=== PATIENT | male | born 2000 | race Caucasian/White ===

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

== ENCOUNTER 2025-07-23 05:49 | Emergency (ER) | payer BC, SELFPAY ==
[2025-07-23 05:51] VITALS: BP 156/92; PULSE 76; RESP 16; TEMP 36.8; O2SAT 100; BMI 23.8
--- NOTE | 2025-07-23 05:58 | EKG12_ITS ---
Test Reason : DYSRHYTHMIA Blood Pressure : */* mmHG Vent. Rate : 69 BPM Atrial Rate : 69 BPM P-R Int : 156 ms QRS Dur : 84 ms QT Int : 366 ms P-R-T Axes : 34 27 30 degrees QTcB Int : 392 ms Normal sinus rhythm Normal ECG Confirmed by Boris Inman ([id number]), newspaper or periodical editor TRINH RDZ ([id number]) on 07/26/2025 10:29:52 AM Referred By: Confirmed By: Boris Inman
--- NOTE | 2025-07-23 06:05 | ED.VIS.CHEST ---
HPI History of Present Illness Chief Complaint: Palpitations Narrative Narrative: Chief complaint and HPI: Palpitations. 25-year-old male with no significant past medical history presents for evaluation of palpitations. Patient states for the past several days he has had an upset stomach. Describes it as nausea. Denies any emesis. Denies any abdominal pain, diarrhea, constipation, dysuria, urinary frequency. States he did have some back pain with the nausea but this has since resolved. He states this morning while laying in bed he felt his heart racing. Palpitations have since resolved. He denies any fever, chills, shortness of breath, chest pain. Endorses decreased p.o. intake secondary to the nausea. Review of systems: See HPI Medications: As listed on the chart Allergies: As listed on the chart PFSH: Per chart Vital signs: As listed on the chart. Reviewed. Physical exam: Gen: A&O x3, anxious Head: Normocephalic, atraumatic Eyes: No sclera icterus, conjunctiva clear, PERRL ENT: Moist mucous membranes Neck: Trachea midline, No JVD CV: RRR, no murmurs, no peripheral edema Resp: Lungs CTA BL, no w/r/c GI: Abd soft, non-distended, non-tender, no r/r/g : No CVA tenderness Musc: Full ROM, no deformity Skin: Warm, dry Neuro: Alert, oriented, grossly intact, sensation intact Psych: Cooperative [facility] Medical History Asthma Back pain Fever Headache Home Medications ?Medication ?Instructions ?Recorded ?Last Taken ?Type NK 07/23/25 Unknown History Allergy/AdvReac Type Severity Reaction Status Date / Time No Known Allergies Allergy Verified 07/23/25 05:55 Family History Other Cancer Diabetes Heart disease Hypertension Surgical History [place] teeth extracted Social History Smoking Status: Never smoker alcohol intake: never EXAM Physical Exam Const Vital Signs: 07/23/25 05:51 Temperature 98.2 F Temperature Source Oral Pulse Rate 76 Respiratory Rate 16 Blood Pressure 156/92 H Blood Pressure Mean 113 Pulse Ox 100 Oxygen Delivery Method Room Air MDM MDM MDM Narrative Medical decision making narrative: 25-year-old male with no significant past medical history presents for evaluation of palpitations. Palpitations resolved during transport to the emergency department. Associated symptoms several days of nausea. On presentation, patient no acute distress but anxious. His vitals are stable other than some mild hypertension. Physical exam unremarkable. Differential diagnosis includes but is not limited to arrhythmia, electrolyte abnormality, dehydration, thyroid disease, low suspicion for ACS. Patient will be monitored in the emergency department. Laboratory workup ordered including chest x-ray. EKG and chest x-ray reviewed see below. Unremarkable. CBC without leukocytosis. Patient does have some mild hemoconcentration at 16.9, may be secondary to mild dehydration from decreased p.o. intake. Troponin unremarkable. CMP unremarkable without electrolyte abnormality or transaminitis. TSH unremarkable. Magnesium level unremarkable. On reevaluation, patient in no acute distress. He is anxiety has improved as well as his blood pressure. Still mildly elevated. Told to follow-up with his PCP for this. At this point in time, no clear etiology for his palpitations. Follow-up with PCP. Return precautions explained. Him and his mother confirmed understand the plan. Patient will discharge home. EKG: Interpreted by me/EM physician: EKG shows normal sinus rhythm without acute ischemic changes. Heart rate 69. Normal QTc. Diagnostic: Interpreted by me/EM physician: Chest x-ray without pneumonia, effusion, cardiomegaly, pneumothorax. Radiology in agreement. Impression: 1. Palpitations 2. Nausea 3. HTN, to be confirmed Lab Data Labs: Laboratory Results - last 24 hr 07/23/25 06:00 WBC 7.3 RBC 6.03 Hgb 16.9 H Hct 48.4 MCV 80.3 MCH 28.0 MCHC 34.9 RDW Std Deviation 35.2 RDW Coeff of Anthony 12.3 Plt Count 179 MPV 10.1 Immature Gran % (Auto) 0.300 Neut % (Auto) 57.2 Lymph % (Auto) 29.5 Hill % (Auto) 9.3 Eos % (Auto) 2.6 Baso % (Auto) 1.1 H Absolute Neuts (auto) 4.2 Absolute Lymphs (auto) 2.15 Nucleated RBC % 0 Troponin T High Sens < 6 Radiography Diagnostic Testing: Clinical Impression(s) from Imaging Studies Chest X-Ray 07/23/25 06:16 IMPRESSION: No acute cardiopulmonary abnormalities. Reading Location: [facility] Discharge Plan Triage Chief Complaint: Palpitations ED Provider: Mcihael Cleaning Dx/Rx/DC Orders Clinical Impression: Palpitations Instructions: ED Heart Palpitations Prescriptions: No Action NK Primary Care Provider: Kashmir Lind Referrals: Uche Gonzalez MD [Non-Staff] - 3-5 Days Activity Restrictions/Additional Instructions: Follow-up with primary care physician. Return back to the ED if symptoms change or worsen. Make sure that you are drinking and eating. Follow-up with primary care physician for your blood pressure. Print Language: Persian Disposition Disposition: Home, Self Care
[2025-07-23 06:11] LABS: Hematocrit 48.4 % (40-54); Hemoglobin 16.9 g/dL (13.0-16.5); Immature Granulocytes Count 0.020 X10^3/uL (0.0-0.0); Mean Corp Hgb Conc 34.9 g/dL (32-36); Mean Corpuscular Volume 80.3 fL (80-94); Mean Platelet Vol. 10.1 fl (6.2-12.0); NRBC Flagged by Analyzer 0 % (0-5); Platelet Count 179 K/mm3 (150-450); RBC Distribution Width CV 12.3 % (11.6-14.6); RBC Distribution Width SD 35.2 fl (35.1-43.9); Red Blood Count 6.03 M/mm3 (4.6-6.2); White Blood Count 7.3 K/mm3 (4.4-11.0)
--- NOTE | 2025-07-23 06:16 | RAD_ITS ---
PROCEDURE: CHEST PA AND LATERAL 07/23/2025 REASON FOR EXAM: PALPITATIONS TECHNIQUE: Procedure Code: RADCXR Modality: DX Procedure: CHEST PA AND LATERAL COMPARISON: None. FINDINGS: Hardware: Monitor electrodes overlie the chest. Heart: No cardiomegaly. Mediastinum: Unremarkable. Lungs: Clear. No pleural effusion or pneumothorax. Bones: No acute bony abnormalities. RAD/Chest PA and Lateral IMPRESSION: No acute cardiopulmonary abnormalities. Reading Location: [id number]
--- OUTSIDE RECORDS SUMMARY | 2025-07-23 06:39 | XMS RPT_ITS | CCD ---
Author Organization [facility] Care Team Providers Care Machine Ii Engraver Name Role Phone Jessi Oswald Unavailable DWAYNE Padilla Unavailable Unavailable Problems Problem Classification Problem Date Documented Da te Episodic/Chronic Fever of unknown origin (2 sources) Fever; Translations: [Fever] 06-28-2019 Episodic Other upper respiratory disease (2 sources) Allergic rhinitis; Translations: [Allergic rhinitis] 06-23-2018 Chronic Results Test Name Value Interpretation Reference Range Facil ity Urgent Care Visit Reporton 0 11-25-2021 Urgent Care Visit Report [facility] [address] [place] [address] [address] [place] [id number] OFFICE VISIT Date of Service: 11/25/21 MR#: [id number] Acct: [id number] Name: AWILDA FLORES Rep #: [id number] : 2000 Provider: CRISTY Brown Age/Sex: 21/M [place] [facility] Status: Signed Intake Vital Signs 11/25/21 08:10 Height 6 ft 0.5 in Weight: 155 lb BMI 20.7 BP 122/70 H Blood Pressure Location Lt brachial Position Sitting Respiration 14 Pulse 77 Pulse Source Monitor Temp 97.4 F L Temp Source Temporal Pulse Oximetry (%) 97 Oxygen Delivery Method room air Intake Visit Reasons: covid test -for work Chief Complaint: covid test for work Is patient in pain?: No Allergies No Known Allergies Allergy (Verified 11/25/21 08:09) Medications acetaminophen 325 mg capsule 325 mg PO Q6H 06/26/19 [History Confirmed 11/25/21] cetirizine 10 mg capsule 10 mg PO DAILY 06/26/19 [History Confirmed 11/25/21] ibuprofen 100 mg tablet 200 mg PO Q6H 06/26/19 [History Confirmed 11/25/21] PFSH Medical History Asthma Back pain Fever Headache Surgical History [place] teeth extracted Family History Other Cancer Diabetes Heart disease Hypertension Social History Smoking Status: Never smoker alcohol intake: never HPI HPI Chief Complaint: covid test for work Details: AWILDA FLORES, is a 21 M who presents to the office today for in need of COVID test. Pt flew to [place] and is need of a COVID test to return to work. He denies symptoms. ROS Const Constitutional: Positive for other (ROS negative x 10 except what is described above) Exam Const General: cooperative, healthy appearing and no acute distress Nutritional Appearance: average body habitus Orientation: alert, awake and oriented x3 HENMT Head: normal to inspection and atraumatic Ears: hearing grossly normal bilaterally Nose: external nose normal Face and sinus: normal facial exam Mouth: oral mucosae normal Eyes General: appearance normal, both eyes and all related structures Resp Effort Inspection: normal respiratory effort Auscultation: Bilateral: Clear to Auscultation Cardio Palpation: normal PMI Rate: regular rate Rhythm: regular rhythm Heart Sounds: S1 normal, S2 normal, no gallops, no murmurs and no rubs GI Inspection: normal to inspection Auscultation: normal bowel sounds Palpation: soft, no hepatosplenomegaly and nontender Neuro General: patient alert, patient awake, patient oriented x3 and CN's II-XI intact bilaterally Results POC SARS AG POC SARS AG Negative Last Edit by Mercedes Dudley on 11/25/21 08:19 Coding Level of Care Code Off vis,est,level 2 Diagnoses Exposure to COVID-19 virus Z20.822 Assessment and Plan Assessment and Plan (1) Exposure to COVID-19 virus: Status: Acute Plan - Danitza MUNIZ, PA: Patient tested negative for Covid using rapid testing in the office today. Patient advised of symptomatic management techniques as well as potential red flags and when appropriate to report to the ED. Patient verbalized understanding and agreement with all the above. Plan Details Other Orders: Orders: POC Rapid SARS Antigen Today 11/25/21 0826 A> Date Danitza Alford Signature: Date (if applicable) CC: Normal [facility] 10-11-2021 CNOV Office Visit (PEDSWS ) ----- MARKAWILDA Alexandr ([id number]) 2 M Date Time Provider Department 10/11/21 9:30 AM CLAUDETTE ADAMS During your visit today, we recorded the following information about you: Temperature Pulse Respiration Blood pressure 97.2 degrees 92/minute 16/minute 110/72 Weight Height 73.5 kg 1.795 m Claudette Adams MD 10/11/2021 9:59 AM Signed WELL VISIT PEDIATRIC MALE 18+YRS OLD SERVICE DATE: 10/11/2021 Awilda is a 21 year old male who presents today for well exam. SUBJECTIVE CONCERNS: no concerns HISTORY ACTIVE PROBLEM LIST Contact Dermatitis and Other Eczema, Due to Unspecified Cause - 07/04/2005 PAST MEDICAL HISTORY Diagnosis Date - PMH - PAST MEDICAL HISTORY OF pneumonia - night time cough also - used Flovent - PMH - PAST MEDICAL HISTORY OF 2006 normal color vision - PMH - PAST MEDICAL HISTORY OF age 6 years sutures in his head PAST SURGICAL HISTORY Procedure Laterality Date - PAST SURGICAL HISTORY OF 2000 circumcision ALLERGIES No Known Allergies Medications: adapalene (DIFFERIN) 0.1 % gel Apply qhs hydrocortisone 2.5 % ointment Apply BID for 2 weeks then once daily for 2 weeks. Then use once daily on Fri AND prn. FAMILY HISTORY Problem Relation Age of Onset - Hypertension Maternal Grandfather - Diabetes Paternal Grandmother - Cancer Paternal Grandfather - Hypertension Paternal Grandfather - Cancer Maternal Aunt breast - Diabetes Maternal Aunt - Thyroid Maternal Aunt Akua's Social History Social History Narrative Not on file Smoking Exposure: Do you spend a significant amount of time with anyone who smokes? No School: working. Physical Activity: more than 1 hour of physical activity per day Screen Time totaling less than 2 hours of screen time per day. Safety: Reviewed seat belts, bike helmets and smoke detectors Diet: -Eats 3 meals per day and 0 snacks per day -Typical beverages include water and milk -Fruits and vegetables are not eaten routinely -# of fast food meals/week: 0 -# of days/week that family has dinner together: 0 Elimination: no concerns, normal size and consistency Dental: dental care current Sleep: -no sleep concerns Substance use: none High risk behaviors: none Sexual History: Attraction: male Sexually Active: No Body image: satisfactory Patient identity: Male REVIEW OF SYSTEMS GENERAL: No fevers EYES: No vision concerns ENT: No hearing concerns RESPIRATORY: Negative for cough, wheezing or respiratory distress CARDIOVASCULAR: Negative for chest pain, syncope, lightheadness or heart racing SKIN: Negative for lesions, rash, and itching ENDOCRINE: No growth concerns OBJECTIVE Physical Exam: Pulse 92 Temp 36.2 ?C (97.2 ?F) (Temporal) Resp 16 Ht 179.5 cm (5' 10.67) Wt 73.5 kg (162 lb 2 oz) BMI 22.82 kg/m? Blood pressure percentiles are not available for patients who are 18 years or older. Normalized BMI data available only for age 0 to 20 years. Last BMI: Wt: 75.5 kg (166 lb 6.4 oz) (66 %, Z= 0.42)* BMI: 23.61 kg/(m2) Last 4 Encounter Wt Readings: Date: Wt: 10/11/2021 73.5 kg (162 lb 2 oz) 10/24/2020 75.5 kg (166 lb 6.4 oz) (66 %, Z= 0.42)* 11/22/2019 69 kg (152 lb 3.2 oz) (50 %, Z= 0.01)* 06/04/2019 70.8 kg (156 lb) (59 %, Z= 0.24)* Last 4 Encounter Ht Readings: Date: Ht: 10/11/2021 179.5 cm (5' 10.67) 10/24/2020 178.8 cm (5' 10.39) (61 %, Z= 0.28)* 11/22/2019 180 cm (5' 10.87) (69 %, Z= 0.48)* 11/12/2018 178.8 cm (5' 10.39) (65 %, Z= 0.38)* General: alert and active in no apparent distress Head: Normocephalic, atraumatic Eyes: PERRLA, EOM's intact Ears: External ears normal. Canals clear. Tympanic membranes are intact bilaterally without evidence of fluid in the middle ear space Nose/Sinuses: Nares normal. Septum midline. Mucosa normal. No drainage or sinus tenderness. Oropharynx: Tonsils are 1+. Uvula is midline and the oropharynx is symmetrical Neck: No masses and the suprasternal notch, no supraclavicular adenopathy, supple, no adenopathy Thyroid: no masses or nodules present Heart: Regular Rate and Rhythm without murmurs or clicks, femoral and radial pulses are normal.PMI normal Lungs: clear to auscultation. No wheezes or rales.Chest AP diameter normal. Abdomen: Abdomen is soft, nontender, without organomegaly or masses. Breasts: normal male exam : [place] male. Testicles are descended bilaterally without evidence of hernia, hydrocele or mass Musculoskeletal: Extremities with FROM and no problems identified. Bilateral shoulder, elbow and wrist exams are within normal limits. Bilateral hip, knee and ankle examinations are within normal limits. Neurological: Muscle tone normal, Awake, alert and oriented x 3, Cranial nerves II-XII grossly intact, , Normal age appropriate gait, muscle tone normal, muscle strengt (more content not included)... Normal [facility] Encounters Encounter Date Encounter Type Care Provider Facility Start: 06-28-2019 End: 06-28-2019 Lab Order Jessi Oswald [facility] Start: 06-23-2018 End: 06-23-2018 Lab Order Jessi Oswald [facility] Plan of Treatment Date Care Activity Detail Author Start: 06-28-2019 Blood count manual cell count each CBC WITH MANUAL DIFF ([id number]) [facility] Work Phone: Start: 06-23-2018 Allergen spec ige crude allergen extract each [facility] Work Phone: Progress note 10-11-2021 Note Date & Type Note Facility 10-11-2021 Note HNO ID: [id number] Author: Claudette Adams MD Service: ? Author Type: Physician Type: Progress Notes Filed: 10/11/2021 9:59 AM Note Text: WELL VISIT PEDIATRIC MALE 18+YRS OLD SERVICE DATE: 10/11/2021 Awilda is a 21 year old male who presents today for well exam. SUBJECTIVE CONCERNS: no concerns HISTORY ACTIVE PROBLEM LIST Contact Dermatitis and Other Eczema, Due to Unspecified Cause - 07/04/2005 PAST MEDICAL HISTORY Diagnosis Date - PMH - PAST MEDICAL HISTORY OF pneumonia - night time cough also - used Flovent - PMH - PAST MEDICAL HISTORY OF 2006 normal color vision - PMH - PAST MEDICAL HISTORY OF age 6 years sutures in his head PAST SURGICAL HISTORY Procedure Laterality Date - PAST SURGICAL HISTORY OF 2000 circumcision ALLERGIES No Known Allergies Medications: adapalene (DIFFERIN) 0.1 % gel Apply qhs hydrocortisone 2.5 % ointment Apply BID for 2 weeks then once daily for 2 weeks. Then use once daily on Mon AND Th prn. FAMILY HISTORY Problem Relation Age of Onset - Hypertension Maternal Grandfather - Diabetes Paternal Grandmother - Cancer Paternal Grandfather - Hypertension Paternal Grandfather - Cancer Maternal Aunt breast - Diabetes Maternal Aunt - Thyroid Maternal Aunt Akua's Social History Social History Narrative Not on file Smoking Exposure: Do you spend a significant amount of time with anyone who smokes? No School: working. Physical Activity: more than 1 hour of physical activity per day Screen Time totaling less than 2 hours of screen time per day. Safety: Reviewed seat belts, bike helmets and smoke detectors Diet: -Eats 3 meals per day and 0 snacks per day -Typical beverages include water and milk -Fruits and vegetables are not eaten routinely -# of fast food meals/week: 0 -# of days/week that family has dinner together: 0 Elimination: no concerns, normal size and consistency Dental: dental care current Sleep: -no sleep concerns Substance use: none High risk behaviors: none Sexual History: Attraction: male Sexually Active: No Body image: satisfactory Patient identity: Male REVIEW OF SYSTEMS GENERAL: No fevers EYES: No vision concerns ENT: No hearing concerns RESPIRATORY: Negative for cough, wheezing or respiratory distress CARDIOVASCULAR: Negative for chest pain, syncope, lightheadness or heart racing SKIN: Negative for lesions, rash, and itching ENDOCRINE: No growth concerns OBJECTIVE Physical Exam: Pulse 92 Temp 36.2 ?C (97.2 ?F) (Temporal) Resp 16 Ht 179.5 cm (5' 10.67) Wt 73.5 kg (162 lb 2 oz) BMI 22.82 kg/m? Blood pressure percentiles are not available for patients who are 18 years or older. Normalized BMI data available only for age 0 to 20 years. Last BMI: Wt: 75.5 kg (166 lb 6.4 oz) (66 %, Z= 0.42)* BMI: 23.61 kg/(m2) Last 4 Encounter Wt Readings: Date: Wt: 10/11/2021 73.5 kg (162 lb 2 oz) 10/24/2020 75.5 kg (166 lb 6.4 oz) (66 %, Z= 0.42)* 11/22/2019 69 kg (152 lb 3.2 oz) (50 %, Z= 0.01)* 06/04/2019 70.8 kg (156 lb) (59 %, Z= 0.24)* Last 4 Encounter Ht Readings: Date: Ht: 10/11/2021 179.5 cm (5' 10.67) 10/24/2020 178.8 cm (5' 10.39) (61 %, Z= 0.28)* 11/22/2019 180 cm (5' 10.87) (69 %, Z= 0.48)* 11/12/2018 178.8 cm (5' 10.39) (65 %, Z= 0.38)* General: alert and active in no apparent distress Head: Normocephalic, atraumatic Eyes: PERRLA, EOM's intact Ears: External ears normal. Canals clear. Tympanic membranes are intact bilaterally without evidence of fluid in the middle ear space Nose/Sinuses: Nares normal. Septum midline. Mucosa normal. No drainage or sinus tenderness. Oropharynx: Tonsils are 1+. Uvula is midline and the oropharynx is symmetrical Neck: No masses and the suprasternal notch, no supraclavicular adenopathy, supple, no adenopathy Thyroid: no masses or nodules present Heart: Regular Rate and Rhythm without murmurs or clicks, femoral and radial pulses are normal.PMI normal Lungs: clear to auscultation. No wheezes or rales.Chest AP diameter normal. Abdomen: Abdomen is soft, nontender, without organomegaly or masses. Breasts: normal male exam : S[place] V male. Testicles are descended bilaterally without evidence of hernia, hydrocele or mass Musculoskeletal: Extremities with FROM and no problems identified. Bilateral shoulder, elbow and wrist exams are within normal limits. Bilateral hip, knee and ankle examinations are within normal limits. Neurological: Muscle tone normal, Awake, alert and oriented x 3, Cranial nerves II-XII grossly intact, , Normal age appropriate gait, muscle tone normal, muscle strength 5/5 in the upper and lower extremities bilaterally and symmetrically, rapid alternating movements are smooth in the hands without evidence of dysdiadochokinesia Skin: Normal skin exam without concerning lesions ASSESSMENT: 21 year old Well exam PLAN: 1) Plan per orders. 2) Hearing and Vision i (more content not included)... [facility] Summary Purpose Family History No Family History Records FoundNo Family History Records Found Advance Directives No Advanced Directives Records FoundNo Advanced Directives Records Found Additional Source Comments (unrecognized sect ion and content) No Status Records FoundNo Status Records Found INFORMATION SOURCE (unrecogn ized section and content) DATE CREATED AUTHOR 12/16/2021 [facility] DATE CREATED AUTHOR AUTHOR'S ORGANIZ ATION 01/05/2022 [facility] FOR RECORDS PERTAINING TO PATIENTS WHO ARE OR HAVE BEEN ENROLLED IN A CHEMICAL DEPENDENCY/SUBSTANCEABUSE PROGRAM, SOME INFORMATION MAY BE OMITTED. This clinical summary was aggregated from multiple sources. Caution should be exercised in using it in the provision of clinical care. This summary normalizes information from multiple sources, and as a consequence, information in this document may materially change the coding, format and clinical context of patient data. In addition, data may be omitted in some cases. CLINICAL DECISIONS SHOULD BE BASED ON THE PRIMARY CLINICAL RECORDS. [employer] provides no warranty or guarantee of the accuracy or completeness of information in this document.
[2025-07-23 06:53] LABS: Troponin T High Sensitivity < 6 ng/L (<=22)
[2025-07-23 07:09] LABS: AST(SGOT) 14 U/L (<=37); Alanine Aminotransfer ALT/SGPT 14 U/L (<=46); Albumin, Serum 4.7 g/dL (3.5-5.0); Alkaline Phosphatase 76 U/L (40-129); Anion Gap 11 (5-15); BUN 11 mg/dL (4-19); BUN/Creat Ratio 13.7 RATIO (10-20); Calcium,Total 9.3 mg/dL (7.6-11.0); Carbon Dioxide 24.4 mmol/L (21.0-32.0); Chloride 104 mmol/L (98-108); Estimated Creatinine Clearance 149.77 ml/min (50-250); Globulin 2.5 g/dL (2.2-4.2); Glucose 97 mg/dL (70-99); Magnesium 2.1 mg/dL (1.5-2.2); Potassium 3.9 mmol/L (3.3-5.1)
[2025-07-23 07:17] VITALS: BP 131/93; PULSE 78; RESP 14; TEMP 36.6; O2SAT 98
== END 2025-07-23 07:17 | disposition home or self-care (01) ==
LOC: ED 06:37
PROVIDERS: Emergency Provider Surgery; PCP Family Medicine; Visit Provider Surgery
DX: R00.2 Palpitations (principal); R11.0 Nausea; R03.0 Elevated blood-pressure reading, without diagnosis of hypertension
CPT/HCPCS: 71046; 80053; 83735; 84443; 84484; 85025; 93005; 99284; A4216